=== PATIENT | male | born 1965 | race Caucasian/White ===

== ENCOUNTER → 2017-03-02 | Outpatient (CLI) | payer OTHER ==
[~2017-03-02] MED LIST: REGADENOSON 0.4 MG/5 ML SYRINGE ONE
== END | disposition home or self-care (01) ==
LOC: CFH 07:47
PROVIDERS: ATTEND Internal Medicine Cardiovascular Disease
DX: I34.0 Nonrheumatic mitral (valve) insufficiency (principal); I37.1 Nonrheumatic pulmonary valve insufficiency; R00.2 Palpitations
CPT/HCPCS: 78452; 93017; 93306; A9502; J2785

== ENCOUNTER → 2019-06-02 | Outpatient (CLI) | payer OTHER ==
[~2019-06-02] MED LIST changes: +ALFU10TA PO; +OMNIPAQUE 350 MG/ML, 100ML BOTTLE ONE; -REGADENOSON 0.4 MG/5 ML SYRINGE ONE
== END | disposition home or self-care (01) ==
LOC: CFH 13:11
PROVIDERS: ATTEND Surgery
DX: R10.9 Unspecified abdominal pain (principal); G89.18 Other acute postprocedural pain
CPT/HCPCS: 74177; Q9967

== ENCOUNTER 2019-06-26 08:33 | Outpatient (CLI) | payer OTHER ==
[~2019-06-26 08:33] MED LIST changes: -OMNIPAQUE 350 MG/ML, 100ML BOTTLE ONE
[2019-06-26] MEDS ORDERED: MULT1TAB60 PO (09:41)
== END 2019-06-26 23:59 | disposition home or self-care (01) ==
LOC: STAR 08:33
PROVIDERS: ATTEND Surgery
DX: Z02.9 Encounter for administrative examinations, unspecified (principal)

== ENCOUNTER 2019-07-08 07:11 | Day surgery (SDC) | payer OTHER ==
[~2019-07-08] VITALS: Ht 185.4 cm; Wt 80.6 kg
[~2019-07-08 07:11] MED LIST changes: +BUPIVACAINE/PF 0.5% ONE; +EPINEPHRINE 1 MG/ML, 1ML ONE; +MULT1TAB60 PO
[2019-07-08 07:47] VITALS: BP 115/79
[2019-07-08] MEDS ORDERED: LACTATED RINGERS 1,000 ML IV SCH (07:50)
[2019-07-08] MEDS ORDERED: DIAZEPAM 5 MG TABLET PO ONE (08:30)
[2019-07-08] MEDS ORDERED: ACETAMINOPHEN 500 MG TABLET PO ONE (08:30)
[2019-07-08] MEDS ORDERED: GABAPENTIN 300 MG CAPSULE PO ONE (08:30)
[2019-07-08] MEDS ORDERED: MIDAZOLAM 1 MG/ML, 2ML ONE (08:32)
[2019-07-08] MEDS ORDERED: FENTANYL PF 250 MCG/5ML ONE (08:32)
[2019-07-08] MEDS ORDERED: KETOROLAC 30 MG/1 ML ONE (08:34)
[2019-07-08] MEDS ORDERED: EPHEDRINE 50 MG/ML, 1ML ONE (08:34)
[2019-07-08] MEDS ORDERED: LIDOCAINE 2% 100MG/5ML SYRINGE ONE (08:34)
[2019-07-08] MEDS ORDERED: MIDAZOLAM 1 MG/ML, 2ML IV PRN (09:30)
[2019-07-08] MEDS ORDERED: hydrALAzine 20 MG/ML, 1ML IV PRN (09:30)
[2019-07-08] MEDS ORDERED: PROMETHAZINE 25 MG/ML, 1ML IV PRN (09:30)
[2019-07-08] MEDS ORDERED: DIAZEPAM 5 MG/ML, 2ML IVPush PRN (09:30)
[2019-07-08] MEDS ORDERED: ALBUTEROL/IPRATROPIUM 2.5MG/0.5MG, 3 ML NPPB PRN (09:30)
[2019-07-08] MEDS ORDERED: OXYcodone 5 MG/5 ML ORAL.SOL UDC PO PRN (09:30)
[2019-07-08] MEDS ORDERED: MEPERIDINE/PF 25MG/ML,1ML IVPush PRN (09:30)
[2019-07-08] MEDS ORDERED: HYDROmorphone 2 MG/ML, 1ML IVPush PRN (09:30)
[2019-07-08] MEDS ORDERED: METOPROLOL 1 MG/ML, 5ML IV PRN (09:30)
[2019-07-08] MEDS ORDERED: PROPOFOL 10 MG/ML, 20ML ONE (09:43)
[2019-07-08] MEDS ORDERED: DEXAMETHASONE 4 MG/ML, 1ML ONE (09:43)
[2019-07-08] MEDS ORDERED: ONDANSETRON 2MG/ML, 2ML ONE (09:43)
[2019-07-08] MEDS ORDERED: ROCURONIUM 10MG/ML,5ML ONE (09:43)
[2019-07-08] MEDS ORDERED: SUGAMMADEX 200 MG/2 ML IVPush ONE (09:43)
[2019-07-08] MEDS ORDERED: CEFAZOLIN 1,000 MG ONE (09:43)
[2019-07-08] MEDS ORDERED: OXYcodone 5 MG/5 ML ORAL.SOL UDC ONE (10:32)
[2019-07-08] MEDS ORDERED: FENTANYL PF 100 MCG/2ML ONE (10:32)
[2019-07-08] MEDS: FENTANYL PF 100 MCG/2ML IV PRN ×3 (10:35→10:53)
== END 2019-07-08 13:20 | disposition home or self-care (01) ==
LOC: OR 07:11
PROVIDERS: ATTEND Surgery
DX: K44.9 Diaphragmatic hernia without obstruction or gangrene (principal); N40.0 Benign prostatic hyperplasia without lower urinary tract symptoms; Z72.89 Other problems related to lifestyle; Z98.890 Other specified postprocedural states
CPT/HCPCS: 43282; J0171; J0690; J1100; J1885; J2250; J2405; J2704; J3010; J7120; S2900